=== PATIENT | male | born 1995 | race Caucasian/White ===

== ENCOUNTER 2016-10-17 14:18 | Emergency (ER) | payer BC ==
[~2016-10-17] VITALS: Ht 185.4 cm; Wt 95.8 kg
[2016-10-17 14:43] VITALS: TEMP 36.9; Ht 185.4 cm; Wt 95.8 kg
[2016-10-17] MEDS ORDERED: ONDANSETRON 4MG OD TAB ONE (14:45)
[2016-10-17] MEDS ORDERED: ONDANSETRON 4MG OD TAB PO STA (14:46)
[2016-10-17] MEDS ORDERED: IBUPROFEN 200 MG TAB PO STA (15:23)
[2016-10-17] MEDS ORDERED: SODIUM CHLORIDE 0.9% 1000ML 1,000 ML IV STA (15:23)
[2016-10-17] MEDS ORDERED: ACETAMINOPHEN 500 MG TAB PO STA (15:23)
[2016-10-17 15:51] LABS: BASO % 0.1 %; BASO ABS # 0.02 K/uL (0-0.2); COMPLETE YES; EOS % 0.3 %; HEMATOCRIT 45.2 % (42-52); IG% 2.3 %; LYMPH % 4.1 %; LYMPH ABS # 0.65 K/uL (1.2-3.4); MEAN CELL VOLUME 80.7 fL (80-100); MEAN CORPUSCULAR HEMOGLOBIN 27.7 pg (25-34); MEAN CORPUSCULAR HGB CONC 34.3 g/dl (32-36); MEAN PLATELET VOLUME 9.9 fL (7.4-10.4); MONO % 2.7 %; NEUT % 90.5 %; PLATELET COUNT 260 K/uL (130-400); WHITE BLOOD COUNT 15.96 K/uL (4.8-10.8)
[2016-10-17 16:16] LABS: BUN/CREATININE RATIO 13.8 (10-20); CALCIUM 8.8 mg/dl (8.5-10.1); CREATININE 1.2 mg/dl (0.60-1.40); POTASSIUM 4.3 mmol/L (3.5-5.1)
[2016-10-17] MEDS ORDERED: ONDA4TAB10 SL (18:05)
[2016-10-17 18:24] VITALS: BP 122/53; PULSE 78; O2SAT 98
--- NOTE | 2016-10-17 21:21 | EMERGENCY ROOM VISIT NOTE ---
History Report prepared by Belgicaibemily: Taylor Lafleur Under the Supervision of: Dr. Grady Dougherty M.D. First contact with patient: 15:12 Chief Complaint: FLU LIKE SX Stated Complaint: STOMACH BUY, VOMITING, YU, SEVERE DEHYDRATION History of Present Illness The patient is a 21 year old male who presents to the Emergency Room with complaints of worsening flu like symptoms for the past 2 weeks. He has experienced wheezing, a headache, cough, fever, chills and vomiting. Last week he was seen at [facility], and the provider told him they were not sure if he had "asthma, bronchitis or the flu". He was given an Albuterol inhaler, prednisone and 5 day course of antibiotics. He felt better starting 3 days ago. Early this morning around 0200, he awoke feeling very nauseous and started vomiting. He also complains of a headache and has experienced persistent diarrhea and intermittent abdominal pain. He thinks he vomited approximately 20 times and had diarrhea around 5 times so far today. He denies any melena or hematochezia. The patient states he feels like he is very dehydrated. He tried taking NyQuil, but states he vomited it up almost immediately after taking it. He has not checked his temperature but does not think he has a fever. He denies any neck pain or stiffness, or numbness or weakness in his extremities. 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 The patient denies any history of asthma, but states he experienced seasonal allergies as a child. He states the headache is global. It was gradual in onset and worse with vomiting. 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 A total of 10 systems reviewed and were otherwise negative. Past Medical & Surgical Medical Problems: (1) Seasonal allergies Social History Smoking Status: Never Smoker Alcohol Use: occasionally Drug Use: none Marital Status: single Housing Status: lives with roommate Occupation Status: [employer] student Current/Historical Medications Scheduled Ondasetron Odt (Zofran Odt), 4 MG SL Q6H Allergies Coded Allergies: No Known Allergies (Unverified , 10/17/16) Physical Exam Vital Signs Date Time Temp Pulse Resp B/P Pulse Ox O2 Delivery O2 Flow Rate FiO2 10/17/16 18:24 78 16 122/53 98 Room Air 10/17/16 16:40 73 16 129/63 99 Room Air 10/17/16 14:43 36.9 90 20 150/97 96 Room Air Physical Exam Constitutional: Vital signs reviewed. Well-appearing. Sitting comfortably on the stretcher. Eyes: Pupils are equal round reactive to light. Conjunctiva are noninjected. ENT: Pharynx is clear without erythema or exudate. Mucous membranes are dry. Neck supple without meningeal signs. Respiratory: Clear to auscultation bilaterally. Breath sounds are equal bilaterally. Cardiovascular: Regular rate and rhythm. No rubs or gallops. GI: Soft, nondistended and nontender. Bowel sounds are present. Musculoskeletal: No peripheral edema. Integumentary: No cyanosis. Neurological: The patient is awake and alert. Cranial nerves II-XII are intact. Motor is 5 out of 5 all extremities. Sensation is intact to light touch all extremities. Normal speech. No pronator drift. No photophobia. Psychiatric: Normal affect. Medical Decision & Procedures Laboratory Results 10/17/16 15:40 Red Blood Count 5.60, Mean Corpuscular Volume 80.7, Mean Corpuscular Hemoglobin 27.7, Mean Corpuscular Hemoglobin Concent 34.3, Mean Platelet Volume 9.9, Neutrophils (%) (Auto) 90.5, Lymphocytes (%) (Auto) 4.1, Monocytes (%) (Auto) 2.7, Eosinophils (%) (Auto) 0.3, Basophils (%) (Auto) 0.1, Neutrophils # (Auto) 14.44, Lymphocytes # (Auto) 0.65, Monocytes # (Auto) 0.43, Eosinophils # (Auto) 0.05, Basophils # (Auto) 0.02 10/17/16 15:40 Test 10/17/16 15:40 White Blood Count 15.96 K/uL (4.8-10.8) Red Blood Count 5.60 M/uL (4.7-6.1) Hemoglobin 15.5 g/dL (14.0-18.0) Hematocrit 45.2 % (42-52) Mean Corpuscular Volume 80.7 fL (80-100) Mean Corpuscular Hemoglobin 27.7 pg (25-34) Mean Corpuscular Hemoglobin Concent 34.3 g/dl (32-36) Platelet Count 260 K/uL (130-400) Mean Platelet Volume 9.9 fL (7.4-10.4) Neutrophils (%) (Auto) 90.5 % Lymphocytes (%) (Auto) 4.1 % Monocytes (%) (Auto) 2.7 % Eosinophils (%) (Auto) 0.3 % Basophils (%) (Auto) 0.1 % Neutrophils # (Auto) 14.44 K/uL (1.4-6.5) Lymphocytes # (Auto) 0.65 K/uL (1.2-3.4) Monocytes # (Auto) 0.43 K/uL (0.11-0.59) Eosinophils # (Auto) 0.05 K/uL (0-0.5) Basophils # (Auto) 0.02 K/uL (0-0.2) RDW Standard Deviation 39.2 fL (36.4-46.3) RDW Coefficient of Variation 13.2 % (11.5-14.5) Immature Granulocyte % (Auto) 2.3 % Immature Granulocyte # (Auto) 0.37 K/uL (0.00-0.02) Anion Gap 8.0 mmol/L (3-11) Est Creatinine Clear Calc Drug Dose 110.9 ml/min Estimated GFR () 100.3 Estimated GFR (Non- 86.5 BUN/Creatinine Ratio 13.8 (10-20) Calcium Level 8.8 mg/dl (8.5-10.1) Total Bilirubin 0.5 mg/dl (0.2-1) Direct Bilirubin 0.1 mg/dl (0-0.2) Aspartate Amino Transf (AST/SGOT) 10 U/L (15-37) Alanine Aminotransferase (ALT/SGPT) 25 U/L (12-78) Alkaline Phosphatase 94 U/L (45-117) Total Protein 7.6 gm/dl (6.4-8.2) Albumin 4.2 gm/dl (3.4-5.0) Laboratory results as reviewed by me. Medications Administered Medications (Trade) Dose Ordered Sig/Carolyn Route Start Time Stop Time Status Last Admin Dose Admin Ondansetron HCl 4 mg 4 mg NOW STAT PO 10/17/16 14:46 10/17/16 14:48 DC 10/17/16 14:46 4 MG Sodium Chloride (Nss 1000ml) 1,000 ml @ 999 mls/hr Q1H1M STAT IV 10/17/16 15:23 10/17/16 16:23 DC 10/17/16 15:23 999 MLS/HR Acetaminophen (Tylenol Tab) 1,000 mg NOW STAT PO 10/17/16 15:23 10/17/16 15:24 DC 10/17/16 15:43 1,000 MG Ibuprofen (Advil Tab) 400 mg NOW STAT PO 10/17/16 15:23 10/17/16 15:24 DC 10/17/16 15:44 400 MG ED Course 1446: Zofran 4 mg PO. 1514: The patient was evaluated in room A3. A complete history and physical exam was performed. 1523: Ibuprofen 400 mg PO, Acetaminophen 1000 mg PO, NSS 1000 ml @ 999 mls/hr IV. 1605: I reevaluated the patient. He feels much better and his headache is almost completely resolved. He still complains of a little pain to the back of his head. 1650: I reevaluated the patient. He has not been able to provide a stool sample yet. 1802: I reevaluated the patient. He states he cannot give us a stool sample. He is feeling better and would like to go home. I discussed his results and discharge instructions and he verbalized complete understanding and agreement. Medical Decision This is a 21-year-old male who presents with headache, vomiting and diarrhea. Differential diagnosis includes food borne illness, gastroenteritis, dehydration , electrolyte abnormality, intracranial mass, intracranial bleed, C. difficile colitis. I did perform a limited focused review of portions of the patient's old chart on the electronic medical record. The patient has had no prior visits to this hospital. I did evaluate the patient as noted above. The patient is presenting with vomiting and diarrhea as well as a headache. He states that his fraternity brothers have had similar symptoms. He has recently been on antibiotics and so I did order testing for C. difficile antigen. Unfortunately the patient was not able to give us a stool sample throughout his emergency department visit. IV access was established. The patient was given Zofran in triage. I did treat him with normal saline IV and ibuprofen. I did order and review the patient's blood work as noted in the electronic medical record. His white blood cell count is elevated. This is a nonspecific finding. It may be just be elevated from his vomiting and he has also just been on steroids recently which may also elevate his white count. I did reevaluate the patient. I did discuss the test results with him. He was able to drink and eat crackers here. He states that his headache is almost completely resolved. I do not suspect meningitis or an acute intracranial process. His headache was likely secondary to dehydration and vomiting. The patient did not wish to wait any longer to try to give a stool sample. He was therefore discharged home with a prescription for Zofran and advised to follow with [facility]. Impression Primary Impression: Headache Additional Impressions: Vomiting Diarrhea Dehydration Scribe Attestation The scribe's documentation has been prepared under my direct and personally reviewed by me in its entirety. I confirm that the note above accurately reflects all work, treatment, procedures, and medical decision making performed by me. Departure Information Dispostion Home / Self-Care Prescriptions Ondasetron Odt (ZOFRAN ODT) 4 Mg Tab 4 MG SL Q6H for Nausea, #10 TAB Prov: Grady Dougherty M.D. 10/17/16 Referrals No Doctor, Assigned (PCP) Patient Instructions ED Vomiting Diarrhea Nonspecific Ad, My [facility] Additional Instructions You have been examined and treated today on an emergency basis only. This is not a substitute for, or an effort to provide, complete comprehensive medical care. It is impossible to recognize and treat all injuries or illnesses in a single emergency department visit. It is therefore important that you follow up closely with [facility]. Call as soon as possible for an appointment. Return for worsening symptoms or if you develop fever, neck pain or stiffness, rash, rectal bleeding or any other concerning symptoms. Problem Qualifiers
== END 2016-10-17 18:25 | disposition home or self-care (01) ==
LOC: C.EDB 14:21 → C.EDA 18:25
DX: R51 Headache (principal); R11.10 Vomiting, unspecified; R19.7 Diarrhea, unspecified; E86.0 Dehydration